=== PATIENT | female | born 1955 | race Two or more races ===

== ENCOUNTER 2019-02-22 14:01 | Emergency (ER) | payer MEDICARE, OTHER ==
[~2019-02-22] VITALS: Ht 165.1 cm; Wt 99.8 kg
[2019-02-22 14:01] VITALS: BP 0/0
[2019-02-22] MEDS ORDERED: EPINEPHrine HCL 1 MG/10 ML SYRG IV ONE (14:04)
[2019-02-22] MEDS ORDERED: ATROPINE SULF 1 MG/10ml SYR IV ONE (14:04)
[2019-02-22] MEDS ORDERED: AMIODARONE HCL (50 MG/ ML) 3 ML VIAL IV ONE (14:04)
[2019-02-22] MEDS ORDERED: CALCIUM CHLOR(10%) 100MG/ML 10ML SYRINGE IV ONE (14:04)
[2019-02-22] MEDS ORDERED: SODIUM BICARBONATE 8.4% INJ 50ML SYRINGE IV ONE (14:04)
[2019-02-22] MEDS ORDERED: SODIUM BICARBONATE 8.4% INJ 50ML SYRINGE ONE (14:13)
[2019-02-22] MEDS ORDERED: EPINEPHrine HCL 1 MG/10 ML SYRG ONE (14:17)
== END 2019-02-22 17:33 | disposition expired ==
LOC: EDBD 14:01 → ER 14:03
DX: I46.9 Cardiac arrest, cause unspecified (principal); E11.9 Type 2 diabetes mellitus without complications; I10 Essential (primary) hypertension
CPT/HCPCS: 31500; 92950; 99285; J0171; J0282